=== PATIENT | female | born 1925 | race Caucasian/White ===

== ENCOUNTER 2017-05-31 16:57 | Emergency (ER) | payer MEDICARE, OTHER ==
--- NOTE | 2017-05-31 18:07 | CT ---
EXAM: NONCONTRAST HEAD CT 05/31/17 HISTORY: Fall. Hit her head. Posttraumatic pain. COMPARISON: 01/20/15. TECHNIQUE: Noncontrast head CT is performed from skull base to skull vertex. FINDINGS: There appears to be hyperdense air fluid level in the right maxillary sinus. Air fluid level in the l eft maxillary sinus is noted. Given presence of hyperdense fluid, the possibility of a maxillofacial fracture cannot be excluded. Maxillofacial CT is recommended. There is evidence of previous surgical repair in the right orbit. Mastoid air cells are adequately aerated. Calvarium is intact. No parenchy mal hemorrhage. No extra-axial hematoma. No midline shift. Basilar cisterns are patent. Brain volume, age appropriate. Cortical dickerson-white matter differentiation is preserved. Ventricles and sulci are patent and symmetric. Atherosclerosis is noted. IMPRESSION: 1. No intracranial posttraumatic sequela. 2. Chronic small vessel ischemic change white matter. 3. Opacification of both sinuses which may be due to sinus disease. However, there is hyperdense fluid in the right maxillary sinus. If there is concern for a maxillofacial fracture, dedicated faci al bone CT is recommended. POS: REECE
[2017-05-31] MEDS ORDERED: Bacitracin Zinc 1 Packet ONE (18:10)
[2017-05-31] MEDS ORDERED: Adacel (T-DAP) 0.5 ML VIAL ONE (18:25)
== END 2017-05-31 18:27 | disposition home or self-care (01) ==
LOC: SCSER 16:57
DX: S61.217A Laceration without foreign body of left little finger without damage to nail, initial encounter (principal); S61.216A Laceration without foreign body of right little finger without damage to nail, initial encounter; S00.81XA Abrasion of other part of head, initial encounter; Z23 Encounter for immunization; W01.10XA Fall on same level from slipping, tripping and stumbling with subsequent striking against unspecified object, initial encounter
CPT/HCPCS: 12002; 70450; 90471; 90715